=== PATIENT | female | born 1990 | race Caucasian/White ===

== ENCOUNTER → 2017-11-06 | Outpatient (CLI) | payer OTHER ==
[~2017-11-06] MED LIST: ALB18R INH; ALBU8.5H12 IH; AMIT-106 PO; AMIT-108 PO; AMO500 PO; CEP500 PO; CIPR-214 PO; CIPR500S3 PO; DM/P295L PO; GABA-549 PO; GEMF600T91 PO; GLIP-130 PO; HYDR-3503 PO; HYDR-4228 PO; HYDR2TAB4 PO; IBUP-56 PO; IBUP800T37 PO; INSU100I32 SQ; LEVI SUBQ; LIRA0.6P3 SQ; MELO-205 PO; METF-409 PO; METO-734 PO; MOTRIN; NO MEDS; NO RTN MEDS; ONDA4TAB PO; OXYC-865 PO; OXYC-870 PO; PER PO; PRE20 PO; PREG100C44 PO; PREG150C33 PO; PROM-110 PO; SITA100T PO
--- NOTE | 2017-11-06 15:41 | RADIOLOGY IMAGING REPORT ---
FACILITY: [facility] [place] PATIENT NAME: Chantal Sanders : 1990 MR: [id number] V: [id number] EXAM DATE: ORDERING PHYSICIAN: HARRIS PARKER TECHNOLOGIST: Location: [facility] Patient: Chantal Sanders : 1990 Visit/Account:[id number] Date of Sevice: 11/06/2017 Technique: CHEST PA AND LAT HISTORY: Hernia surgery COMPARISON: None available Findings: The lungs are clear. No pleural effusion or pneumothorax. The cardiomediastinal silhouett e is unremarkable. Impression: 1. No acute cardiopulmonary process. Report Dictated By: Todd Garcia DO at 11/06/2017 3:36 PM Report E-Signed By: Todd Garcia DO at 11/06/2017 3:37 PM WSN:[id number]
== END ==
LOC: RAD 14:47
PROVIDERS: ATTEND Family Medicine
DX: J45.20 Mild intermittent asthma, uncomplicated (principal)
CPT/HCPCS: 71046

== ENCOUNTER → 2017-11-06 | Outpatient (REF) | payer OTHER | LOC: ZZSENDIN 15:55 | PROVIDERS: ATTEND Family Medicine | DX: R31.9 Hematuria, unspecified (principal) | CPT/HCPCS: 87077; 87088; 87186 ==

== ENCOUNTER 2017-11-13 01:16 | Day surgery (SDC) | payer OTHER ==
[~2017-11-13] VITALS: Ht 170.2 cm; Wt 142.9 kg
--- NOTE | 2017-11-13 04:12 | NACHTIGAL H&P ---
DATE OF ADMISSION: November 13, 2017 CHIEF COMPLAINT Lump in the abdomen. HISTORY OF PRESENT ILLNESS This is a 27-year-old female with a history of diabetes that presents with a lump in the upper abdomen that has been increasing in size and starting to cause her some pain. She has had no change in her bowel movements. ALLERGIES She has no known allergies. CURRENT MEDICATIONS She is currently on metformin. PAST MEDICAL HISTORY/OPERATIONS She had a colonoscopy, an EGD, she had a laparoscopic cholecystectomy in 2013. She had a left total knee replacement and a cervical lymph node biopsy. REVIEW OF SYSTEMS Significant for the history of diabetes. She denies any cardiac disease, pulmonary disease, liver or kidney disease. No hypertension. PHYSICAL EXAMINATION GENERAL: Reveals a 27-year-old female in no acute distress. LUNGS: Clear. HEART: Regular rhythm. ABDOMEN: She has an upper midline hernia. She has a small defect at the umbilicus as well. IMPRESSION Ventral incisional hernia and an umbilical hernia. PLAN We will repair these with robot assistance. We discussed the procedure, complications and recovery time. She seems to understand and wishes to proceed. ALLA
[2017-11-13] MEDS ORDERED: MIDAZOLAM 2 MG/2 ML VIAL IVP PRN (06:30)
[2017-11-13] MEDS ORDERED: LIDOCAINE/SOD BICARB 8.4% SYR ID ONE (06:30)
[2017-11-13] MEDS ORDERED: NORMOSOL R SOLN(*) 1000 ML BAG 1,000 ML IV PRN (06:30)
[2017-11-13] MEDS ORDERED: FAMOTIDINE 20 MG TAB PO ONE (06:30)
[2017-11-13] MEDS ORDERED: ROPIVACAINE 0.2% 20 ML VIAL ONE (07:57)
[2017-11-13] MEDS ORDERED: fentaNYL CITR 250 MCG/5 ML AMP ONE (08:23)
[2017-11-13] MEDS ORDERED: SUGAMMADEX SOD 200 MG/2 ML SDV ONE ×2 (08:23→12:11)
[2017-11-13] MEDS ORDERED: PROPOFOL EMUL(*) 10MG/ML 20 ML 20 ML ONE (08:23)
[2017-11-13] MEDS ORDERED: LIDOCAINE MPF 1% 5 ML VIAL ONE (08:23)
[2017-11-13] MEDS ORDERED: DEXAMETHASONE SOD 4 MG/ML VIAL ONE (08:23)
[2017-11-13] MEDS ORDERED: ONDANSETRON 4 MG/2 ML VIAL ONE (08:23)
[2017-11-13] MEDS ORDERED: ROCURONIUM BROM 10 MG/ML 10 ML ONE (08:23)
[2017-11-13] MEDS ORDERED: ceFAZolin(*) 2GM/D5W 50ML 50 ML IVPB ONE (09:55)
[2017-11-13 10:16] VITALS: BP 127/92
[2017-11-13] MEDS ORDERED: KETAMINE HCL 200 MG/20 ML MDV ONE (11:00)
[2017-11-13] MEDS ORDERED: ceFAZolin 1 GM VIAL ONE (11:01)
[2017-11-13] MEDS ORDERED: fentaNYL CITR 100 MCG/2 ML AMP ONE ×3 (12:52→14:34)
[2017-11-13] MEDS ORDERED: DESFLURANE 240 ML BTL INH ONE (12:57)
--- NOTE | 2017-11-13 13:58 | Post Operative Progress Note ---
Post Operative Progress Note Date: Nov 13, 2017 Time: 13:56 Surgeon: sylvia Anesthesia: dr land Pre-Op Diagnosis: ventral incisoinal hernia Post-Op Diagnosis: same Procedure(s): ventral incisional hernia repair with 11.5 cm circular mesh FLORES SAGE MD Nov 13, 2017 13:58
[2017-11-13] MEDS ORDERED: KET10 PO (13:59)
[2017-11-13] MEDS ORDERED: HYDR-4309 PO (13:59)
--- NOTE | 2017-11-13 14:01 | Short(Outpt) Discharge Summary ---
Discharge Summary Reason for Hosp/Final Diag: (1) Ventral incisional hernia Hospital Course & Plan: ventral incisional hernia repair with 11.5 cm circular mesh Departure Discharge to: Home Discharge Instructions Home Meds Active Scripts Hydrocodone Bit/Acetaminophen (NORCO 5-325 TABLET) 1 Each Tablet, 1 EACH PO Q4H Y for PAIN, #30 TAB Prov:FLORES SAGE MD 11/13/17 Ketorolac Tromethamine (KETOROLAC TROMETHAMINE) 10 Mg Tab, 10 MG PO Q6H, #16 TAB Prov:FLORES SAGE MD 11/13/17 Reported Medications Ciprofloxacin Hcl (CIPROFLOXACIN HCL) 500 Mg Tablet, 250 MG PO Q12H for 7 Days, #14 TAB 11/08/17 Albuterol Sulfate (VENTOLIN HFA) 18 Gm Inh, 1-2 PUFF INH 3-4XD Y for SHORTNESS OF BREATH, INH 03/15/17 Metformin Hcl (GLUCOPHAGE) 1,000 Mg Tablet, 1 TAB PO BID 07/31/13 Discontinued Scripts Ibuprofen (IBUPROFEN) 800 Mg Tablet, 1 TAB PO Q8H, #30 TAB 0 Refills Take with food every 8 hours. Prov:MADDIE CORDERO MD 03/28/17 Hydromorphone Hcl (HYDROMORPHONE HCL) 2 Mg Tablet, 2-4 MG PO Q4H for PAIN, #20 TAB 0 Refills Prov:MADDIE CORDERO MD 03/28/17 Diet: Regular Activity: No Heavy Lifting Special Instructions: ice to incisions for 48 hours remove bandage and shower to see me in one week, call [phone] for apt FLORES SAGE MD Nov 13, 2017 14:01
[2017-11-13 14:55] VITALS: BP 111/59
[2017-11-13 15:15] VITALS: BP 124/72
[2017-11-13 15:30] VITALS: BP 127/72
[2017-11-13 15:33] VITALS: BP 143/80
[2017-11-13] MEDS ORDERED: APAP/HYDROCODONE 325/5 TAB ONE (15:37)
--- NOTE | 2017-11-13 16:19 | OPERATIVE REPORT 1 ---
EVENT DATE: November 13, 2017 SURGEON: Ryan Bal MD ANESTHESIOLOGIST: Chacorta Hector MD ANESTHESIA: General. PREOPERATIVE DIAGNOSIS Ventral incisional hernia. POSTOPERATIVE DIAGNOSIS Ventral incisional hernia. PROCEDURE PERFORMED Ventral incisional hernia repair laparoscopically with the robot assist and 11.5 cm circular mesh. She has a modifier -22 for her morbid obesity. She has a BMI of 51, and this added extra difficulty and time to the case. DESCRIPTION OF PROCEDURE The patient was placed in the supine position and given general anesthetic. A Macias catheter was placed. We placed a roll underneath her left side, placed her at the break in the table, and then hyperextended her abdomen. The abdomen was then prepped and draped in a sterile fashion. We went laterally on the left side a couple of centimeters from the costal margin. We made a small incision, inserted a Veress needle, and insufflated the abdomen with CO2. We then placed an 8 mm trocar under direct vision using the [employer]. Upon entering the peritoneal cavity, there were adhesions to the anterior abdominal wall at the umbilicus and at the hernia. We used the scope, then placed two additional 8 mm ports. These were placed 8 cm apart in the left lateral position. We then placed the ports at the correct depth. We docked the robot. We then placed the instruments under direct vision. I then went to the console and proceeded with the dissection. We took the adhesions off the anterior abdominal wall. They were attached to the umbilicus. There was no hernia present at the umbilicus. The hernia defect was 2 cm and was located in the midline in the epigastrium. We incised the peritoneum laterally and dissected in the preperitoneal space removing the fat. We dissected out the hernia sac and reduced it. We then dissected superiorly, inferiorly, and laterally in order to allow placement of our mesh. At this point, we had good dissection. We then closed the fascia with a running V-Loc suture, and we left the needle attached after we had closed the defect. We then placed a 11.5 cm circular Ventralex mesh. We had to put in a 12 mm port in order to get this mesh to go in, so we exchanged out the port in the left subcostal region and a placed a 12 in. We were then able to get the mesh into position. We then placed the previous V-Loc stitch through the mesh so it would hold it up against the anterior abdominal wall. We then sutured it circumferentially with a running V-Loc stitch. Three of these stitches were used to completely encircle the mesh and get it nice and flat. We then cut the needles and removed the four needles from the peritoneal cavity. We then had a nice repair. The mesh laid nice and flat. We had the fascia closed in the midline as well. At this point, we removed the 12 mm port and closed that fascia with two stitches of 0 Vicryl to secure it. The 8 mm ports were then removed. The skin was closed with interrupted 4-0 Maxon. Steri-Strips and an Airstrip were placed. The patient tolerated the procedure well. No apparent complications. Estimated blood loss was negligible. [facility]
== END 2017-11-13 14:49 | disposition home or self-care (01) ==
LOC: OR 01:16
PROVIDERS: ATTEND Surgery
DX: K43.2 Incisional hernia without obstruction or gangrene (principal); E11.9 Type 2 diabetes mellitus without complications
CPT/HCPCS: 36416; 49654; 81025; 82948; 94667; C1781; J0690; J1100; J2001; J2405; J2704; J2795; J3010; J3490; S2900

== ENCOUNTER 2018-07-08 10:25 | Outpatient (RCR) | payer OTHER ==
[~2018-07-08] VITALS: Ht 170.2 cm; Wt 138.3 kg
[~2018-07-08 10:25] MED LIST changes: -GEMF600T91 PO; +GEMF600T96 PO; +HYDR-653 PO; +KET10 PO
--- NOTE | 2018-07-08 15:43 | Medical Nutrition Therapy ---
Nutrition Anthropometrics Height (Inches): 67 (stated) Weight (Pounds): 305 (stated wt) Ahmet Nutrition Score: Ahmet Nutrition Risk Score: Dietary Referral Nutrition Risk Factors: Nutrition Risk Comment: Nutrition/Food History Breakfast: grah crackers, or pop tart, or cereal& milk Lunch: liberian or akash sandwich Dinner: meat, starch, occ veg Snacks: grah crackers, nuts Nutritional Education Nutrition Education Topic: Diabetic Nutrition (T2DM with ) Learning Readiness: Interested Teaching Methods: Discussion, Handout, Demonstration Response to Teaching: Verbalize understanding Teaching Recipient: Patient, Significant Other Nutrition Counseling: Pt with dx T2DM and currently 8 wks PG. Reviewed glycemic reponse to CHO foods and stress importance of higher fiber CHO and adding protein or fat when eating CHO to decreased hyperglycemic response. Pt is on WIC program. Cautioned about frt juice use and encouraged increased cheese and less milk. Pt has some food insecurity issues. Discussed utilizing [employer]. Provided meal plan of 30 CHO bkft, 45gm CHO lunch and supper with 15-20gm CHO PM and HS snacks. Stress improtance of protein and/or fat with each meal and snacks. Discussed lower cost high protein foods. Will f/u Jul 22 at 10:00. Nutrition Monitoring & Eval RD Patient Assessment Time: [address] Assessment Type: RD Education Nutritional Comment: Provided 60 minutes diabetes education focusing on nutrition Copies To Copies to: PRINCESS PETERSON MD ; DONAVAN WILKINSON Jul 08, 2018 15:43
--- NOTE | 2018-07-22 11:01 | Medical Nutrition Therapy ---
Nutrition/Food History Breakfast: skips or thai yogurt Lunch: turkey sandwich Dinner: turkey, starch Snacks: candy, sandwich or fruit Nutritional Education Nutrition Education Topic: Diabetic Nutrition Learning Readiness: Interested Teaching Methods: Discussion Response to Teaching: Verbalize understanding Teaching Recipient: Patient, Significant Other Nutrition Counseling: Pt and attended session. Pt has been checking BG 4X/day. BG ranging 115- 140's fasting and 160-200 2 hrs after meals. Pt stated has dx gastroparesis. Discussed how she needs low fiber and low fat with gastroparesis and that can affect BG. Encouraged pt to cut back on CHO since she does need lower fiber. Recommend increase high protein foods as much as she can. Pt has been skipping meals. Encouraged pt to eat small meal with snack between. Recommend pt talk with physican regarding her BG and to contact us if she has further questions or concerns. Nutrition Monitoring & Eval RD Patient Assessment Time: [address] Assessment Type: RD Education Nutritional Comment: Provided 45 minutes diabetes education focusing on nutrition and blood glucose numbers. Copies To Copies to: PRINCESS PETERSON MD ; DONAVAN WILKINSON Jul 22, 2018 11:01
== END 2018-08-12 ==
LOC: DIET 10:25
PROVIDERS: ATTEND Obstetrics & Gynecology
DX: Z71.3 Dietary counseling and surveillance (principal); O24.911 Unspecified diabetes mellitus in pregnancy, first trimester
CPT/HCPCS: G0108 ×3

== ENCOUNTER 2019-01-31 05:05 | Inpatient (IN) | payer OTHER ==
[~2019-01-31] VITALS: Ht 170.2 cm; Wt 138.3 kg
[2019-01-31] VITALS (37 sets, daily range): BP systolic 50–148; BP diastolic 32–103; Ht 170.2 cm; Wt 138.3 kg
[2019-01-31] MEDS ORDERED: LR(*) 1000 ML BAG 1,000 ML IV PRN (05:09)
[2019-01-31] MEDS ORDERED: METOCLOPRAMIDE 10 MG/2 ML SDV IVP ONE (05:10)
[2019-01-31] MEDS ORDERED: CITRIC ACID/SOD CIT 15 ML UDC PO ONE (05:10)
[2019-01-31] MEDS ORDERED: FAMOTIDINE 20 MG/50 ML PREMIX IVPB ONE (05:10)
[2019-01-31] MEDS ORDERED: DLR(*) 1000 ML BAG 1,000 ML IV SCH (05:10)
[2019-01-31] MEDS ORDERED: cefOXitin/DEX(*) 2GM/50ML PREM 50 ML IVPB ONE (05:10)
[2019-01-31 05:56] LABS: PLATELET COUNT, AUTOMATED 252 K/uL (150-450)
[2019-01-31] MEDS: LR(*) 1000 ML BAG 1,000 ML IV SCH ×2 (06:12→06:44)
[2019-01-31] MEDS ORDERED: INSU100V24 SQ (06:29)
[2019-01-31] MEDS ORDERED: DOCU-416 PO (06:29)
[2019-01-31] MEDS ORDERED: NPH,100V2 (06:29)
[2019-01-31] MEDS ORDERED: PREN-127 PO (06:29)
[2019-01-31] MEDS ORDERED: fentaNYL CITR 100 MCG/2 ML AMP ONE ×2 (06:36→11:42)
[2019-01-31] MEDS ORDERED: KETOROLAC 30 MG/ML VIAL ONE (06:36)
[2019-01-31] MEDS ORDERED: MORPHINE PF 5 MG/10 ML AMP ONE (06:36)
[2019-01-31] MEDS ORDERED: OXYTOCIN 10 UNIT/ML SDV ONE (06:36)
[2019-01-31] MEDS ORDERED: CITRIC ACID/SOD CIT 15 ML UDC ONE (06:46)
--- NOTE | 2019-01-31 07:20 | History & Physical ---
History of Present Illness Age of Patient: 28 : 3 Para or TPAL: 1 EDC per LMP: Feb 13, 2019 Estimated Gestational Age: 38 Chief Complaint History of Present Illness Presents for planned repeat . complicated by Type 2 DM managed by OBX and has done well, insulin controlled. Pt is morbidly obese as well and has history of chronic hypertension although her BP has remained stable. History of [facility] from [facility] and her last C/S was for breech. Considering the risks of she has elected to proceed with a repeat . Past Medical, Surgical, Family and Obstetric Histories reviewed. Please see ACOG chart. History Allergies: Coded Allergies: No Known Drug Allergies (Verified , 06/26/14) Family History: Patient reports no known family medical history. Med Rec Home Meds Reported Medications Docusate Sodium (COLACE) 100 Mg Capsule, 100 MG PO, CAPSULE 01/31/19 Insulin Lispro 100 Un/Ml Vial (HUMALOG 100 U/ML VIAL) 100 Unit/1 Ml Vial, 24 UNITS SQ, VIAL 01/31/19 Insulin Lispro 100 Un/Ml Vial (HUMALOG 100 U/ML VIAL) 100 Unit/1 Ml Vial, 18 UNIT SQ, VIAL 01/31/19 Insulin Lispro 100 Un/Ml Vial (HUMALOG 100 U/ML VIAL) 100 Unit/1 Ml Vial, 22 UNIT SQ, VIAL 01/31/19 Insulin NPH Human Isophane (Humulin N) 100 Unit/Ml Vial, 110 01/31/19 Insulin NPH Human Isophane (Humulin N) 100 Unit/Ml Vial, 24 01/31/19 Vits W-Ca,Fe,Fa(<1MG) ( VITAMINS) 1 Each Tablet, 1 EACH PO DAILY, TAB 01/31/19 Discontinued Reported Medications Ciprofloxacin 500 Mg Tab (CIPROFLOXACIN 500 MG TAB) 500 Mg Tablet, 250 MG PO Q12H for 7 Days, #14 TAB 11/08/17 Albuterol Sulfate (VENTOLIN HFA) 18 Gm Inh, 1-2 PUFF INH 3-4XD PRN for SHORTNESS OF BREATH, INH 03/15/17 Metformin Hcl (GLUCOPHAGE) 1,000 Mg Tablet, 1 TAB PO BID 07/31/13 Discontinued Scripts Hydrocodone Bit/Acetaminophen (NORCO 5-325 TABLET) 1 Each Tablet, 1 EACH PO Q4H PRN for PAIN, #30 TAB Prov:NACHTIGAL,FLORES MD 11/13/17 Ketorolac Tromethamine (KETOROLAC TROMETHAMINE) 10 Mg Tab, 10 MG PO Q6H, #16 TAB Prov:FLORES SAGE MD 11/13/17 Review of Systems All Systems Reviewed/Normal: Yes, Except as Noted Exam General Exam Vital Signs Vital Signs Date Time Temp Pulse Resp B/P (MAP) Pulse Ox O2 Delivery O2 Flow Rate FiO2 01/31/19 06:00 98.7 66 18 142/79 (100) 96 Room Air General Apperance: Alert/Awake/No Acute Distress Neuro: No Gross deficits Cardiovascular: Regular Rate and Rhythm Respiratory: No Respiratory Distress Abdomen: Soft, Non-Tender, Non-Distended, Gravid - Non-Tender, Other (obese panus) Extremities: No Cyanosis,Clubbing or Edema Integumentary: Skin Intact without Lesions or Rash Psychological: Alert & Oriented X3 Fetus Heart Tone Variabilty: Moderate FHT Accelerations: 15X15 FHT Category: I Medical Decision Making Data Points Result Diagram: 01/31/1946 01/31/19 0544 VTE Prophylasis: Adult Deep Vein Thrombosis/Pulmonary: No Pharmacological Contraindicati: Pt at Low Risk for VTE Mechanical Contraindications: Pt at Low Risk for VTE Assessment and Plan Problems: (1) 38 weeks gestation of Assessment & Plan: as planned. REviewed risks especially in light of her obesity. (2) Diabetes mellitus affecting , antepartum (3) Obesities, morbid (4) Previous section PRINCESS PETERSON MD Jan 31, 2019 07:20
[2019-01-31] MEDS ORDERED: DLR(*) 1000 ML BAG 1,000 ML IV PRN (09:09)
[2019-01-31] MEDS ORDERED: OXYTOCIN 30 UNIT/NS 500 ML 500 ML IV PRN (09:09)
--- NOTE | 2019-01-31 09:09 | Post Operative Note ---
Operative Note - SPECIAL EDUCATION TUTOR Operative Day Date: Jan 31, 2019 Time: 09:00 Physicians Surgeon: Kashif Mining Engineer: Kinza Gonzalez Anesthesia: Spinal Diagnosis Pre-Op Diagnosis: Previous Type 2 DM Chronic HTN 38 weeks IUP Post-Op Diagnosis: same Procedure Findings: male, APGARS 7, 7 Procedure(s): RLTCS Specimen Removed:(Maybe N/A): [id number] Complications: delivery through anterior placenta Fluids Fluids: 700 ml Estimated Blood Loss: 700 ml Dictated Date OP Note Dictated: Jan 31, 2019 Time OP Note Dictated: 09:02 Copies to: PRINCESS PETERSON MD ; PRINCESS PETERSON MD Jan 31, 2019 09:09
[2019-01-31] MEDS ORDERED: LANOLIN OINT 7 GM TUBE TP PRN (09:10)
[2019-01-31] MEDS ORDERED: SIMETHICONE 80 MG CHEW CHEW PRN (09:10)
[2019-01-31] MEDS ORDERED: ONDANSETRON 4 MG/2 ML VIAL IV PRN (09:10)
[2019-01-31] MEDS ORDERED: ACETAMINOPHEN 325 MG TAB PO PRN (09:10)
[2019-01-31] MEDS ORDERED: DIPHTH/TETANUS/ACEL. PERTUSSIS IM ONLY ONE (09:10)
[2019-01-31] MEDS ORDERED: MEASLES,MUMP,RUBELLA VAC 0.5ML SUBQ ONE (09:10)
[2019-01-31] MEDS ORDERED: PROMETHAZINE 25 MG/ML 1 ML AMP IVP PRN (09:10)
[2019-01-31] MEDS ORDERED: INFLUENZA VIRUS VAC 0.5ML SYR IM ONLY ONE (09:10)
--- NOTE | 2019-01-31 09:30 | OPERATIVE REPORT 1 ---
EVENT DATE: January 31, 2019 SURGEON: Stepan Rowland MD ANESTHESIOLOGIST: Zora Gunn CRNA ANESTHESIA: Spinal. PAPER BAG PRESS OPERATOR: TEQUILA Jacques PREOPERATIVE DIAGNOSES 1. Previous section. 2. Type 2 diabetes. 3. Chronic hypertension. 4. 38-weeks intrauterine . 5. Morbid obesity. POSTOPERATIVE DIAGNOSES 1. Previous section. 2. Type 2 diabetes. 3. Chronic hypertension. 4. 38-weeks intrauterine . 5. Morbid obesity. PROCEDURE PERFORMED Repeat low transverse section via Pfannenstiel skin incision. ESTIMATED BLOOD LOSS 700 cc. FLUIDS 700 cc IV crystalloid. URINE OUTPUT 200 cc. FINDINGS Male , cephalic, anterior placenta and delivery was required through the anterior placenta. Apgars 7 and 7. DESCRIPTION OF PROCEDURE The patient was brought to the operating room and spinal anesthetic was administered. She was then moved to the dorsal supine position with a leftward tilt. Her abdominal pannus was taped up in order to expose the lower portion and then prepped and draped in the usual sterile fashion. Using a knife, a Pfannenstiel skin incision was made in the area of the previous scar and dissected down to the rectus fascia. This was nicked in the midline and extended laterally. The rectus muscles were dissected off superiorly and inferiorly and then in the midline. The peritoneum was entered sharpy. This incision was extended superiorly and inferiorly, taking care to avoid injury to the bladder. The bladder was inserted and this exposed the uterus and there was the previous bladder dissection exposed. This was taken down sharply and a bladder flap was created and this exposed what was believed to be the lower segment of the uterus. Therefore, a low transverse incision was made. Upon entering the uterus, the placenta began to prolapse out and some brisk bleeding was noted. The incision was extended laterally and quickly a hand was inserted to bring the membranes into view, which were then ruptured. A hand was inserted. The 's head was rotated to the incision. Fundal pressure was applied and the infant's head delivered atraumatically. Further fundal pressure affected delivery of the remainder of the and the cord was quickly clamped and cut due to the exposed placental dissection. The was then passed to the awaiting resuscitation team. The placenta was manually removed. The uterus was exteriorized and cleared of clots and debris. The uterine incision was actually approximately 2 cm above the lower uterine segment, which would have been the typical location to make this incision but secondary to her abdominal wall obesity this was required to be higher. The repair was performed with #1 Monocryl in a running locking stitch. Second suture of the same type was used to imbricate the first layer, completing a two layer closure and this incision was hemostatic upon completion. Posterior cul-de-sac was irrigated, swept clear of clots and debris. Uterus was returned to the abdomen and bilateral pelvic gutters were irrigated and swept clear of clots and debris. The parietal peritoneum was repaired using the 3-0 Vicryl in a running nonlocking stitch, reapproximating the rectus muscles in the midline with the same stitch. The muscle bellies were inspected and a few capillary bleeders were cauterized. The rectus fascia was then repaired using an 0 Vicryl in a running nonlocking stitch. Subcuticular space was copiously irrigated, blotted dry. A few capillary bleeders were cauterized. space was closed with a 3-0 Vicryl Plus in a running nonlocking stitch in three separate layers up to the skin incision, which was repaired with a running subdermal 4-0 Monocryl and covered with Dermabond skin adhesive. She tolerated the procedure well. Sponge, laps, needle and instrument counts were all correct x3. She was taken to recovery in stable condition. ALLA
--- NOTE | 2019-01-31 09:38 | Anesthesia OB Pre-Anes Eval ---
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) Surgical History: Previous Anesthesia: spinal Attended Childbirth Classes?: No Hx Anesthesia Reactions: No Hx Family Anesthesia Reaction: No Past Complications: obesity Home Meds Reported Medications Docusate Sodium (COLACE) 100 Mg Capsule, 100 MG PO, CAPSULE 01/31/19 Insulin Lispro 100 Un/Ml Vial (HUMALOG 100 U/ML VIAL) 100 Unit/1 Ml Vial, 24 UNITS SQ, VIAL 01/31/19 Insulin Lispro 100 Un/Ml Vial (HUMALOG 100 U/ML VIAL) 100 Unit/1 Ml Vial, 18 UNIT SQ, VIAL 01/31/19 Insulin Lispro 100 Un/Ml Vial (HUMALOG 100 U/ML VIAL) 100 Unit/1 Ml Vial, 22 UNIT SQ, VIAL 01/31/19 Insulin NPH Human Isophane (Humulin N) 100 Unit/Ml Vial, 110 01/31/19 Insulin NPH Human Isophane (Humulin N) 100 Unit/Ml Vial, 24 01/31/19 Vits W-Ca,Fe,Fa(<1MG) ( VITAMINS) 1 Each Tablet, 1 EACH PO DAILY, TAB 01/31/19 Discontinued Reported Medications Ciprofloxacin 500 Mg Tab (CIPROFLOXACIN 500 MG TAB) 500 Mg Tablet, 250 MG PO Q12H for 7 Days, #14 TAB 11/08/17 Albuterol Sulfate (VENTOLIN HFA) 18 Gm Inh, 1-2 PUFF INH 3-4XD PRN for SHORTNESS OF BREATH, INH 03/15/17 Metformin Hcl (GLUCOPHAGE) 1,000 Mg Tablet, 1 TAB PO BID 07/31/13 Discontinued Scripts Hydrocodone Bit/Acetaminophen (NORCO 5-325 TABLET) 1 Each Tablet, 1 EACH PO Q4H PRN for PAIN, #30 TAB Prov:FLORES SAGE MD 11/13/17 Ketorolac Tromethamine (KETOROLAC TROMETHAMINE) 10 Mg Tab, 10 MG PO Q6H, #16 TAB Prov:FLORES SAGE MD 11/13/17 Allergies: Coded Allergies: No Known Drug Allergies (Verified , 06/26/14) Anesthesia OB ROS Neurological: No migraines/headaches, No seizures, No neuropathy, No other ENT: Denies Tooth caps, Denies Loose teeth, Denies Chipped teeth, Denies Dentures, Denies Bridges, Denies Retainers, Denies Veneers, Denies Implants, Denies Tongue ring, Denies Other Pulmonary: No asthma, No smoker (pks/day/yrs), No other Airway Class: ll Cardiovascular ROS: No edema, No arrhythmia, No other GI ROS: NPO Last Solids Date: Jan 31, 2019 Last Solids Time: 22:00 ROS: No Herpes, No STD(s), No Liver Disease, No Renal Disease, No Other Endocrine ROS: diabetes, other (M.Obese ) ASA Classification: 3 Assessment and Plan Anesthesia Plan: FRANDY Anesthesia Stop Day: Jan 31, 2019 Anesthesia Stop Time: 09:28 DONAVAN HECK CRNA Jan 31, 2019 09:38
[2019-01-31] MEDS ORDERED: METHYLERGONOVINE MAL 0.2MG/ML ONE (11:08)
[2019-01-31] MEDS ORDERED: METHYLERGONOVINE MAL 0.2MG/ML IM ONE (11:09)
[2019-01-31] MEDS ORDERED: LR(*) 1000 ML BAG 1,000 ML ONE (11:12)
[2019-01-31] MEDS ORDERED: CARBOPROST TROMETHAM 250MCG/ML IM ONLY ONE ×2 (11:25→11:28)
[2019-01-31] MEDS ORDERED: NS(*) 0.9% 1000 ML BAG 1,000 ML ONE ×2 (11:27→12:36)
[2019-01-31] MEDS ORDERED: PROPOFOL EMUL(*) 10MG/ML 20 ML 20 ML ONE (11:41)
[2019-01-31] MEDS ORDERED: LIDOCAINE 2% IV 100 MG/5ML SYR ONE (11:42)
--- NOTE | 2019-01-31 11:51 | OB/GYN Progress Note ---
OB Subjective Progress Notes Subjective I was called to the room for a rapid response on a post op patient that was hypotensive 60/40. ER physician Keven Vera was already tending to the patient. OB Objective Physical Exam Vital Signs Date Time Temp Pulse Resp B/P (MAP) Pulse Ox O2 Delivery O2 Flow Rate FiO2 01/31/19 10:00 95 20 144/81 (102) 91 Nasal Cannula 2.0 01/31/19 09:50 98.2 General Appearance: Alert/Awake/No Acute Distress Neurological: No Gross deficits Respiratory: No Respiratory Distress Abdomen: Fundus Boggy Extremities: No Cyanosis,Clubbing or Edema Integumentary: Skin Intact without Lesions or Rash Psychological: Alert & Oriented X3 Result Diagram: 01/31/1944 01/31/19543 Assessment and Plan BIAS CUTTING MACHINE OPERATOR VERTICAL Assessment: Stable BIAS CUTTING MACHINE OPERATOR VERTICAL Plan: Routine Post-Op Care Problems: (1) Previous section Assessment & Plan: Upon entering the room Er and L&D staff was present at patient bedside. Rapid response was called for hypotension 60/40. Methergine 0.2 mg IM was given. Hemabate 0.25 mg IM was given. I felt uterine fundus which was displaced high and the patient right. Bimanual was performed. approx imately 750 cc clot was removed with some difficulty. I felt there was still significant amount of clot in the uterus and recommended the patient be sedated and taken to the OR for removal of clot and possible bakri insertion. Pt was given risks and was taken to the OR do have the procedure performed by Dr. Leonora Rowland. MARTHA BANUELOS DO Jan 31, 2019 11:51
[2019-01-31] MEDS ORDERED: ONDANSETRON 4 MG/2 ML VIAL ONE (11:52)
[2019-01-31] MEDS ORDERED: TRANEXAMIC AC 1000 MG/10ML SDV 1,000 MG in DEXTROSE 5% 50 ML BAG 50 ML IVPB ONE (12:05)
--- NOTE | 2019-01-31 12:43 | Post Operative Note ---
Operative Note - MEDICAL LANGUAGE SPECIALIST Operative Day Date: Jan 31, 2019 Time: 12:35 Physicians Surgeon: Kashif Anesthesia: GETA Diagnosis Pre-Op Diagnosis: hemorrhage s/p Post-Op Diagnosis: same Procedure Findings: uterus full of clots Procedure(s): curettage of uterus placement of Bakri Balloon Complications: blood loss Fluids Fluids: IV cyrstalloid Estimated Blood Loss: 1500 ml Dictated Date OP Note Dictated: Jan 31, 2019 Time OP Note Dictated: 12:37 Copies to: PRINCESS PETERSON MD ; PRINCESS PETERSON MD Jan 31, 2019 12:43
[2019-01-31 12:58] LABS: PLATELET COUNT, AUTOMATED 266 K/uL (150-450)
[2019-01-31] MEDS ORDERED: KETOROLAC 30 MG/ML VIAL IVP SCH (13:00)
--- NOTE | 2019-01-31 13:13 | OPERATIVE REPORT 1 ---
EVENT DATE: January 31, 2019 SURGEON: Stepan Rowland MD ANESTHESIOLOGIST: Farhan Laguna MD ANESTHESIA: General endotracheal. PREOPERATIVE DIAGNOSIS 1. Status post section this morning. 2. hemorrhage. POSTOPERATIVE DIAGNOSIS 1. Status post section this morning. 2. hemorrhage. PROCEDURES PERFORMED 1. Exam under anesthesia with curettage of the uterus. 2. Bakri balloon placement. 3. Transfusion of packed red blood cells. ESTIMATED BLOOD LOSS Estimated blood loss through the whole event is difficult to ascertain but estimated 1500 cc. FLUIDS IV crystalloids. INDICATIONS The patient underwent repeat low-transverse section this morning for 38-week term intrauterine complicated by type 2 diabetes. Her procedure was uncomplicated and had an excellent repair of the uterus and abdominal wall with no visible complications. She came out into the post- anesthesia recovery room and was stable, doing well upon departure. I went back to the office to see patients and was telephoned about her bleeding her increased once she had been transferred back to her room, passing some clots. I, therefore, ordered Methergine 0.2 mg IM and instructed to continue that x24 hours every six hours p.o. Subsequent to that phone call, they called back with an emergency rapid response team assessment secondary to hemorrhage. By the time I presented to the room, the patient was being cared for by staff including the emergency room physician and Dr. Tang had come into the room to help as well. He had performed a bimanual examination with report that her cervix was 2 to 3 cm dilated and there was palpable clot within the uterus. It was difficult to evacuate or remove secondary to the patient's discomfort. Therefore, two units of packed red blood cells were ordered stat, emergent cross-matched as it had already been typed and screened and she was prepped to be taken down to surgery for exam under anesthesia. She had also been administered the Methergine and in addition Carboplast 250 mcg IM x1. She had received Pitocin 20 units in IV bag during her procedure and also 20 units post procedure of Pitocin in her IV bag. DESCRIPTION OF PROCEDURE Once the patient was asleep, she was moved to the dorsal lithotomy position and received a quick vaginal prep. She was then prepped and draped in the usual sterile fashion. Bimanual examination was performed and I did, indeed, palpate her cervix to be 2 to 3 cm dilated with palpable clot within the uterus. I was able to do an aggressive bimanual examination and evacuated approximately 500 cc of clot initially. I attempted initially to pass a 12 mm suction curette into the uterus but was not able to reliably pass that through the cervix due to its state. Therefore, the cervix was grasped with ring forceps and a banjo curette was passed under direct palpation into the uterus and all four quadrants of the uterus were curetted until a gritty texture was palpable and approximately another 300 cc of clot was evacuated. At this point, the uterus had contracted significantly and I was able to manually palpate up to the fundus of the uterus and the majority of those clots had been evacuated. Therefore, the Bakri balloon was prepared and passed through the cervix into the uterus and 300 cc saline was used to distend the balloon. It was left indwelling and to dependent drainage. 800 mcg Cytotec was placed rectally as well as one unit of TXA (tranexamic acid) was administered IV. She was stable throughout the procedure. Blood pressure was stable. They had started transfusion of 200 units of packed red blood cells upon departure from the OR. ALLA
[2019-01-31 16:12] LABS: PLATELET COUNT, AUTOMATED 235 K/uL (150-450)
[2019-01-31] MEDS: LR(*) 1000 ML BAG 1,000 ML IV PRN (18:01)
[2019-01-31] MEDS: METHYLERGONOVINE MAL 0.2MG TAB PO SCH ×2 (18:01→23:16)
[2019-01-31 18:33] LABS: PLATELET COUNT, AUTOMATED 248 K/uL (150-450)
--- NOTE | 2019-01-31 18:33 | Anesthesia Progress Note ---
Progress/Maintenance Anesthesia Note Date: Jan 31, 2019 Anesthesia Note Time: 15:50 Pain Intensity: 2 Report Received From: Zora Gunn CRNA Time Care Assumed: 16:00 Assessment and Plan Assessment: Alert patient, sitting up in bed. Lungs CTA with diminished bases. She phonates well. She is encouraged to deep breathe and cough and spinting demonstrated. MORRO GALINDO CRNA Jan 31, 2019 18:33
[2019-01-31] MEDS: DOCUSATE CALCIUM 240 MG CAP PO SCH (20:51)
[2019-01-31] MEDS: FAMOTIDINE 20 MG TAB PO SCH (20:51)
[2019-01-31] MEDS ORDERED: ZOLPIDEM TARTRATE 5 MG TAB PO PRN (21:00)
[2019-02-01] MEDS: LR(*) 1000 ML BAG 1,000 ML IV PRN (01:06)
[2019-02-01 03:07] VITALS: BP 128/72
[2019-02-01 06:10] LABS: PLATELET COUNT, AUTOMATED 202 K/uL (150-450)
[2019-02-01] MEDS: METHYLERGONOVINE MAL 0.2MG TAB PO SCH (06:39)
[2019-02-01] MEDS ORDERED: IBUPROFEN 800 MG TAB PO SCH (07:00)
[2019-02-01] MEDS: oxyCODON/ACET (*)5/325MG (CII) 1 TAB TAB PO PRN ×4 (07:13→23:39)
[2019-02-01 07:20] VITALS: BP 143/67
[2019-02-01] MEDS ORDERED: metFORMIN HCL XR 500 MG TABCR PO SCH (09:00)
[2019-02-01] MEDS: DOCUSATE CALCIUM 240 MG CAP PO SCH ×2 (09:34→21:18)
[2019-02-01] MEDS: FAMOTIDINE 20 MG TAB PO SCH ×2 (09:34→21:18)
--- NOTE | 2019-02-01 11:16 | OB/GYN Progress Note ---
OB Subjective Progress Notes Subjective Feeling much better. Bleeding drainage minimal from Bakri balloon. Hgb stable at 8.9 currently. BS have been great, 80s-90s fasting and low 100s 2 hours postprandial. GI: NEG Nausea Pain: Mild OB Objective Physical Exam Vital Signs Date Time Temp Pulse Resp B/P (MAP) Pulse Ox O2 Delivery O2 Flow Rate FiO2 02/01/19 03:07 98.4 71 17 128/72 (90) 95 Nasal Cannula 1.0 Intake and Output 02/01/19 07:00 Intake Total 4970 ml Output Total 4325 ml Balance 645 ml Intake Oral 720 ml IV Total 2050 ml Blood Product 500 ml Other 1700 ml Output Urine Total 1910 ml Estimated Blood Loss 2200 ml Other 215 ml General Appearance: Alert/Awake/No Acute Distress Neurological: No Gross deficits Cardiovascular: Normal Rhythm & Peripheral Pulses, Regular Rate and Rhythm Respiratory: No Respiratory Distress, Clear to Auscultation Abdomen: Soft, Non-Tender, Non-Distended (surgical pain), Fundus Boggy Incision: Clean, Dry, Intact, Dermabond Extremities: No Cyanosis,Clubbing or Edema Integumentary: Skin Intact without Lesions or Rash Psychological: Alert & Oriented X3, Appropriate Mood & Affect Result Diagram: 02/01/19 0555 01/31/19 0544 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 Was on glucophage at home and will re-start if BS elevate. As is, no medication. (3) Obesities, morbid (4) Previous section (5) Anemia due to acute blood loss Assessment & Plan: monitor symptoms today with ambulation. Should be stable as she is asymptomatic currently. Bakri balloon removed and will see how she does with bleeding today. PRINCESS PETERSON MD Feb 01, 2019 11:16
[2019-02-01 13:00] VITALS: BP 129/69
[2019-02-01 19:25] VITALS: BP 128/70
--- NOTE | 2019-02-01 20:04 | Anesthesia Post Eval Note ---
Anesthesia Post Eval Note Vital Signs Date Time Temp Pulse Resp B/P (MAP) Pulse Ox O2 Delivery O2 Flow Rate FiO2 02/01/19 19:25 98.3 92 18 128/70 (89) 92 Room Air 02/01/19 07:20 1.0 Pt able to participate in Eval: Yes Cardiovascular Status: Satisfactory Respiratory Status: Satisfactory Pain Managment: Satisfactory PO Nausea/Vomiting: Satisfactory Temperature Management: Satisfactory Mental Status: Satisfactory, Alert, Oriented X3 Post-Op Hydration Status: Satisfactory, Tolerating PO Well, Voiding w/o Difficulty Anesthesia Type: SAB Anesthesia Tolerance: Expresses satisfaction with SAB with intrathecal narcotics for section. This is post op day 1. She has ambulated, is using incentive spirometry. Denies aHA itching or severe pain. Signs of PDPH and infection are reviewed and pt agrees to seek medical attention should any occur.Noted at stick site is br uising approx 1 cm circumferential to stick. No redness swelling or drainage. MORRO GALINDO CLASSER Feb 01, 2019 20:04
[2019-02-01 23:45] VITALS: BP 143/78
[2019-02-02] VITALS (11 sets, daily range): BP systolic 129–167; BP diastolic 62–96
[2019-02-02 05:36] LABS: PLATELET COUNT, AUTOMATED 216 K/uL (150-450)
[2019-02-02] MEDS: oxyCODON/ACET (*)5/325MG (CII) 1 TAB TAB PO PRN ×3 (06:42→23:21)
[2019-02-02] MEDS: DOCUSATE CALCIUM 240 MG CAP PO SCH ×2 (08:35→21:36)
[2019-02-02] MEDS: FAMOTIDINE 20 MG TAB PO SCH ×2 (08:35→21:36)
--- NOTE | 2019-02-02 10:34 | OB/GYN Progress Note ---
OB Subjective Progress Notes Subjective Doing well. Pain tolerable and bleeding less. Hgb is still low and now settling at 7.5 due to diuresing. Denies syncope or lightheaded or headache or chest pain. Has not showered yet. GI: NEG Nausea : Voiding Well Pain: Mild OB Objective Physical Exam Vital Signs Date Time Temp Pulse Resp B/P (MAP) Pulse Ox O2 Delivery O2 Flow Rate FiO2 02/02/19 07:50 98.3 88 18 139/76 (97) 93 Room Air 02/01/19 07:20 1.0 Intake and Output 02/02/19 07:00 Intake Total 220 ml Output Total 2800 ml Balance -2580 ml Intake Oral 220 ml Output Urine Total 2800 ml # Voids 1 General Appearance: Alert/Awake/No Acute Distress Neurological: No Gross deficits Cardiovascular: Normal Rhythm & Peripheral Pulses, Regular Rate and Rhythm Respiratory: No Respiratory Distress, Clear to Auscultation Abdomen: Soft, Non-Tender, Non-Distended (surgical pain), Fundus Boggy Incision: Clean, Dry, Intact, Dermabond Extremities: No Cyanosis,Clubbing or Edema Integumentary: Skin Intact without Lesions or Rash Psychological: Alert & Oriented X3, Appropriate Mood & Affect Result Diagram: 02/02/19 0507 01/31/19 0544 Assessment and Plan Problems: (1) 38 weeks gestation of Assessment & Plan: Possible discharge home tomorrow. (2) Diabetes mellitus affecting , antepartum Assessment & Plan: stable still with good blood sugars without medication. Continue ADA diet. (3) Obesities, morbid (4) Previous section (5) Anemia due to acute blood loss Assessment & Plan: only had 2 units so far. Will transfuse another 2 units to get her to a safer range. Reviewed all risk and benefits with pt and she agrees and consents to transfusion. PRINCESS PETERSON MD Feb 02, 2019 10:34
[2019-02-02] MEDS ORDERED: diphenhydrAMINE 25 MG CAP PO ONE (10:35)
[2019-02-02] MEDS ORDERED: NS(*) 0.9% 500 ML BAG 500 ML IV ONE (10:35)
--- NOTE | 2019-02-02 20:43 | Anesthesia Post Eval Note ---
Anesthesia Post Eval Note Hematology Test 01/31/19 05:44 01/31/19 16:08 02/02/19 05:07 02/02/19 15:13 Sodium Level 136 mmol/L (137-145) Potassium Level 3.8 mmol/L (3.5-5.0) Chloride Level 106 mmol/L (98-107) Carbon Dioxide Level 22 mmol/L (22-31) Blood Urea Nitrogen 10 mg/dl (7-18) Creatinine 0.40 mg/dl (0.52-1.04) Glomerular Filtration Rate Calc > 60.0 Random Glucose 108 mg/dl (75-110) Calcium Level 8.5 mg/dl (8.4-10.2) Total Bilirubin 0.2 mg/dl (0.2-1.3) Aspartate Amino Transf (AST/SGOT) 16 U/L (0-35) Alanine Aminotransferase (ALT/SGPT) 28 U/L (0-56) Alkaline Phosphatase 108 U/L (0-126) Total Protein 6.5 g/dl (6.3-8.2) Albumin 3.4 g/dl (3.5-5.0) Neutrophils % (Manual) 65 % (39.4-72.5) Band Neutrophils % 17 % Lymphocytes % (Manual) 10 % (17.6-49.6) Monocytes % (Manual) 6 % (4.1-12.4) Eosinophils % (Manual) 0 % (0.4-6.7) Basophils % (Manual) 0 % (0.3-1.4) Metamyelocytes % 1 % Peripheral Blood Smear Yes Y/N Red Blood Count 2.58 M/uL (4.17-5.56) Mean Corpuscular Volume 86.9 fL (80.0-96.0) Mean Corpuscular Hemoglobin 28.8 pg (26.0-33.0) Mean Corpuscular Hemoglobin Concent 33.2 g/dL (32.0-36.0) Red Cell Distribution Width 16.3 % (11.5-14.5) Mean Platelet Volume 7.7 fL (7.2-11.1) Neutrophils (%) (Auto) 72.5 % (39.4-72.5) Lymphocytes (%) (Auto) 18.3 % (17.6-49.6) Monocytes (%) (Auto) 6.7 % (4.1-12.4) Eosinophils (%) (Auto) 2.3 % (0.4-6.7) Basophils (%) (Auto) 0.2 % (0.3-1.4) Nucleated RBC Relative Count (auto) 0.0 /100WBC Neutrophils # (Auto) 5.5 K/uL (2.0-7.4) Lymphocytes # (Auto) 1.4 K/uL (1.3-3.6) Monocytes # (Auto) 0.5 K/uL (0.3-1.0) Eosinophils # (Auto) 0.2 K/uL (0.0-0.5) Basophils # (Auto) 0.0 K/uL (0.0-0.1) Nucleated RBC Absolute Count (auto) 0.00 K/uL Whole Blood Glucose 103 mg/DL (75-110) Chemistry Test 01/31/19 05:44 01/31/19 16:08 02/02/19 05:07 02/02/19 15:13 Glomerular Filtration Rate Calc > 60.0 Calcium Level 8.5 mg/dl (8.4-10.2) Total Bilirubin 0.2 mg/dl (0.2-1.3) Aspartate Amino Transf (AST/SGOT) 16 U/L (0-35) Alanine Aminotransferase (ALT/SGPT) 28 U/L (0-56) Alkaline Phosphatase 108 U/L (0-126) Total Protein 6.5 g/dl (6.3-8.2) Albumin 3.4 g/dl (3.5-5.0) Neutrophils % (Manual) 65 % (39.4-72.5) Band Neutrophils % 17 % Lymphocytes % (Manual) 10 % (17.6-49.6) Monocytes % (Manual) 6 % (4.1-12.4) Eosinophils % (Manual) 0 % (0.4-6.7) Basophils % (Manual) 0 % (0.3-1.4) Metamyelocytes % 1 % Peripheral Blood Smear Yes Y/N White Blood Count 7.5 k/uL (4.5-11.0) Red Blood Count 2.58 M/uL (4.17-5.56) Hemoglobin 7.4 g/dL (12.0-16.0) Hematocrit 22.4 % (34.0-47.0) Mean Corpuscular Volume 86.9 fL (80.0-96.0) Mean Corpuscular Hemoglobin 28.8 pg (26.0-33.0) Mean Corpuscular Hemoglobin Concent 33.2 g/dL (32.0-36.0) Red Cell Distribution Width 16.3 % (11.5-14.5) Platelet Count 216 K/uL (150-450) Mean Platelet Volume 7.7 fL (7.2-11.1) Neutrophils (%) (Auto) 72.5 % (39.4-72.5) Lymphocytes (%) (Auto) 18.3 % (17.6-49.6) Monocytes (%) (Auto) 6.7 % (4.1-12.4) Eosinophils (%) (Auto) 2.3 % (0.4-6.7) Basophils (%) (Auto) 0.2 % (0.3-1.4) Nucleated RBC Relative Count (auto) 0.0 /100WBC Neutrophils # (Auto) 5.5 K/uL (2.0-7.4) Lymphocytes # (Auto) 1.4 K/uL (1.3-3.6) Monocytes # (Auto) 0.5 K/uL (0.3-1.0) Eosinophils # (Auto) 0.2 K/uL (0.0-0.5) Basophils # (Auto) 0.0 K/uL (0.0-0.1) Nucleated RBC Absolute Count (auto) 0.00 K/uL Whole Blood Glucose 103 mg/DL (75-110) Vital Signs Date Time Temp Pulse Resp B/P (MAP) Pulse Ox O2 Delivery O2 Flow Rate FiO2 02/02/19 16:48 98.1 94 18 140/68 02/02/19 16:48 97 Room Air 02/01/19 07:20 1.0 Pt able to participate in Eval: Yes Cardiovascular Status: Satisfactory Respiratory Status: Satisfactory Pain Managment: Satisfactory PO Nausea/Vomiting: Satisfactory Temperature Management: Satisfactory Mental Status: Satisfactory, Alert, Oriented X3 Post-Op Hydration Status: Satisfactory, Tolerating PO Well, Voiding w/o Difficulty Anesthesia Type: SAB Anesthesia Tolerance: This is post operative day 2. The patient received two units of PRBC for a hgb at 7. She has had 4 units total this admission. She is steady on her feet and ambulating the lopez. Her skin is pink warm dry. She denies back pain, nausea, and headache. No anesthesia associated complications noted. MORRO GALINDO PROCESS TECHNICIAN Feb 02, 2019 20:43
[2019-02-03] VITALS: BP 143/68
[2019-02-03 04:00] VITALS: BP 134/70
[2019-02-03 06:04] LABS: PLATELET COUNT, AUTOMATED 221 K/uL (150-450)
[2019-02-03 08:30] VITALS: BP 152/87
[2019-02-03] MEDS ORDERED: FERROUS SULFATE 325 MG TAB PO SCH (08:30)
--- NOTE | 2019-02-03 08:30 | OB/GYN Progress Note ---
OB Subjective Progress Notes Subjective Received 2 units PRBCs yesterday. Feeling well enough today. Struggling with breast milk production. Sorting out what to do with home formula or donor breast milk. GI: NEG Nausea : Voiding Well Pain: Mild OB Objective Physical Exam Vital Signs Date Time Temp Pulse Resp B/P (MAP) Pulse Ox O2 Delivery O2 Flow Rate FiO2 02/03/19 05:00 14 02/03/19 04:00 98.2 76 134/70 (91) 94 Room Air 02/01/19 07:20 1.0 Intake and Output 02/03/19 07:00 Intake Total 1760 ml Balance 1760 ml Intake Oral 1060 ml IV Total 200 ml Blood Product 500 ml # Voids 1 General Appearance: Alert/Awake/No Acute Distress Neurological: No Gross deficits Cardiovascular: Normal Rhythm & Peripheral Pulses, Regular Rate and Rhythm Respiratory: No Respiratory Distress, Clear to Auscultation Abdomen: Soft, Non-Tender, Non-Distended (surgical pain), Fundus Boggy Incision: Clean, Dry (keeping dry with gauze under panus), Intact, Dermabond Extremities: No Cyanosis,Clubbing or Edema Integumentary: Skin Intact without Lesions or Rash Psychological: Alert & Oriented X3, Appropriate Mood & Affect Result Diagram: 02/03/1945 01/31/19 0544 Assessment and Plan 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 Reviewed discharge instructions and recommend return to office in 6 weeks and 2 weeks for incision check. (2) Diabetes mellitus affecting , antepartum (3) Obesities, morbid (4) Previous section (5) Anemia due to acute blood loss Assessment & Plan: Improved after transfusion. Will send home on iron. PRINCESS PETERSON MD Feb 03, 2019 08:30
[2019-02-03] MEDS ORDERED: DOCU240C67 PO (08:33)
[2019-02-03] MEDS ORDERED: OXYC-865 PO (08:33)
[2019-02-03] MEDS ORDERED: FERR-53 PO (08:33)
--- NOTE | 2019-02-03 08:36 | OB/GYN Discharge Summary ---
Discharge Summary Reason for Hosp/Final Diag: (1) 38 weeks gestation of Hospital Course & Plan: May be ready to go home today. Reviewed discharge instructions and recommend return to office in 6 weeks and 2 weeks for incision check. (2) Diabetes mellitus affecting , antepartum (3) Obesities, morbid (4) Previous section (5) Anemia due to acute blood loss Hospital Course & Plan: Improved after transfusion. Will send home on iron. Lates Vital Signs Vital Signs Date Time Temp Pulse Resp B/P (MAP) Pulse Ox O2 Delivery O2 Flow Rate FiO2 02/03/19 05:00 14 02/03/19 04:00 98.2 76 134/70 (91) 94 Room Air 02/01/19 07:20 1.0 Weight (Pounds): 305 Result Diagram: 02/03/19 0545 01/31/1946 Condition: Improved Discharge: Home, Self [facility] Meds Active Scripts Oxycodone Hcl/Acetaminophen (PERCOCET 5-325 MG TABLET) 1 Each Tablet, 1 EACH PO Q4H PRN for PAIN, #30 TAB 0 Refills Prov:PRINCESS ROWLAND MD 02/03/19 Reported Medications Docusate Sodium (COLACE) 100 Mg Capsule, 100 MG PO, CAPSULE 01/31/19 Insulin Lispro 100 Un/Ml Vial (HUMALOG 100 U/ML VIAL) 100 Unit/1 Ml Vial, 24 UNITS SQ, VIAL 01/31/19 Insulin Lispro 100 Un/Ml Vial (HUMALOG 100 U/ML VIAL) 100 Unit/1 Ml Vial, 18 UNIT SQ, VIAL 01/31/19 Insulin Lispro 100 Un/Ml Vial (HUMALOG 100 U/ML VIAL) 100 Unit/1 Ml Vial, 22 UNIT SQ, VIAL 01/31/19 Insulin NPH Human Isophane (Humulin N) 100 Unit/Ml Vial, 110 01/31/19 Insulin NPH Human Isophane (Humulin N) 100 Unit/Ml Vial, 24 01/31/19 Vits W-Ca,Fe,Fa(<1MG) ( VITAMINS) 1 Each Tablet, 1 EACH PO DAILY, TAB 01/31/19 Discontinued Reported Medications Ciprofloxacin 500 Mg Tab (CIPROFLOXACIN 500 MG TAB) 500 Mg Tablet, 250 MG PO Q12H for 7 Days, #14 TAB 11/08/17 Albuterol Sulfate (VENTOLIN HFA) 18 Gm Inh, 1-2 PUFF INH 3-4XD PRN for SHORTNESS OF BREATH, INH 03/15/17 Metformin Hcl (GLUCOPHAGE) 1,000 Mg Tablet, 1 TAB PO BID 07/31/13 Discontinued Scripts Hydrocodone Bit/Acetaminophen (NORCO 5-325 TABLET) 1 Each Tablet, 1 EACH PO Q4H PRN for PAIN, #30 TAB Prov:FLORES SAGE MD 11/13/17 Ketorolac Tromethamine (KETOROLAC TROMETHAMINE) 10 Mg Tab, 10 MG PO Q6H, #16 TAB Prov:FLORES SAGE MD 11/13/17 Follow up Referrals: P[employer]ODU[employer] INSPECTOR - In Two Weeks @ [facility] with PRINCESS ROWLAND MD Follow up with: Dr. Rowland [phone] Follow up in: 6 wks PP or PO Discharge Diet: As Tolerates Discharge Activity: As Tolerates, No Heavy Lifting x 6 wks, No Heavy Lifting > 10lb, Pelvic Rest Copies to: PRINCESS ROWLAND MD ; PRINCESS ROWLAND MD Feb 03, 2019 08:35
[2019-02-03] MEDS: FAMOTIDINE 20 MG TAB PO SCH (08:55)
[2019-02-03] MEDS: oxyCODON/ACET (*)5/325MG (CII) 1 TAB TAB PO PRN ×2 (08:56→13:20)
[2019-02-03] MEDS: DOCUSATE CALCIUM 240 MG CAP PO SCH (08:56)
== END 2019-02-03 15:45 | disposition home or self-care (01) | DRG 786 ==
LOC: OB 05:05
PROVIDERS: ADMIT Obstetrics & Gynecology; ATTEND Obstetrics & Gynecology
PROC: 0W3R7ZZ Control Bleeding in Genitourinary Tract, Via Natural or Artificial Opening (ICD-10-PCS; 2019-01-31)
PROC: 10D17ZZ Extraction of Products of Conception, Retained, Via Natural or Artificial Opening (ICD-10-PCS; 2019-01-31)
PROC: 30233N1 Transfusion of Nonautologous Red Blood Cells into Peripheral Vein, Percutaneous Approach (ICD-10-PCS; 2019-01-31)
PROC: 10D00Z1 Extraction of Products of Conception, Low, Open Approach (ICD-10-PCS; principal; 2019-01-31 07:30)
DX: O34.211 Maternal care for low transverse scar from previous cesarean delivery (principal); O24.12 Pre-existing type 2 diabetes mellitus, in childbirth; O10.92 Unspecified pre-existing hypertension complicating childbirth; O72.2 Delayed and secondary postpartum hemorrhage; D62 Acute posthemorrhagic anemia; E11.9 Type 2 diabetes mellitus without complications; O99.214 Obesity complicating childbirth; E66.01 Morbid (severe) obesity due to excess calories; O90.81 Anemia of the puerperium; Z37.0 Single live birth; Z3A.38 38 weeks gestation of pregnancy; Z79.4 Long term (current) use of insulin; Z79.84 Long term (current) use of oral hypoglycemic drugs
CPT/HCPCS: 36415; 36416; 82040; 82247; 82310; 82374; 82435; 82565; 82947; 82948; 84075; 84132; 84155; 84295; 84450; 84460; 84520; 85007; 85014; 85018; 85025; 85027; 86850; 86900; 86901; 86920; 93005; J0694; J1885; J2001; J2210; J2270; J2405; J2590; J2704; J2765; J3010; J7040; J7120; P9016; Q0163